=== PATIENT | male | born 1980 | race Caucasian/White ===

== ENCOUNTER 2018-10-05 00:57 | Emergency (ER) | payer OTHER ==
[2018-10-05 01:06] VITALS: TEMP 97.8
--- NOTE | 2018-10-05 01:56 | ED ---
Alcohol HPI - General Chief Complaint: Alcohol Stated Complaint: ETOH Time Seen by Provider: 10/05/18 01:09 Source: police Mode of arrival: ambulatory Limitations: no limitations - History of Present Illness Initial Comments: 38-year-old male patient presents to the emergency department today brought in by [facility] for intoxication. The patient was in a taxicab when he went to sleep. [facility] did try to take him to his home of vomiting he does live at the address listed on his ID. They then contacted the police who attempted to take patient home as well but were unable to find the correct location. Patient does admit to drinking alcohol today. He denies any injuries or physical concerns. He denies any drug use. Patient denies any recent rash, fever, chills, shortness breath, chest pain, abdominal pain, nausea, vomiting, diarrhea, constipation, back pain, numbness, tingling, dizziness, weakness, hematuria, dysuria, urinary urgency, urinary frequency, headache, visual changes, or any other complaints. - Related Data Home Medications Medication Instructions Recorded Confirmed No Known Home Medications 10/05/18 10/05/18 Allergies Allergy/AdvReac Type Severity Reaction Status Date / Time No Known Allergies Allergy Verified 10/05/18 01:06 Review of Systems ROS Statement: Those systems with pertinent positive or pertinent negative responses have been documented in the HPI. ROS Other: All systems not noted in ROS Statement are negative. Past Medical History Past Medical History: No Reported History History of Any Multi-Drug Resistant Organisms: None Reported Past Surgical History: No Surgical Hx Reported Past Psychological History: No Psychological Hx Reported Smoking Status: Current every day smoker Past Alcohol Use History: Daily Past Drug Use History: None Reported General Exam Limitations: no limitations General appearance: alert, in no apparent distress, appears intoxicated, other (Physical well-developed, well-nourished adult male patient in no acute distress. Vital signs upon presentation are temperature 97.8F, pulse 68, respirations 20, blood pressure 110/70, pulse ox 99% on room air.) Eye exam: Present: normal appearance, PERRL, EOMI. Absent: scleral icterus, conjunctival injection, periorbital swelling Respiratory exam: Present: normal lung sounds bilaterally. Absent: respiratory distress, wheezes, rales, rhonchi, stridor Cardiovascular Exam: Present: regular rate, normal rhythm, normal heart sounds. Absent: systolic murmur, diastolic murmur, rubs, gallop, clicks GI/Abdominal exam: Present: soft, normal bowel sounds. Absent: distended, tenderness, guarding, rebound, rigid Neurological exam: Present: alert, CN II-XII intact. Absent: oriented X3 (Oriented x1) Psychiatric exam: Present: normal affect, normal mood Skin exam: Present: warm, dry, intact, normal color. Absent: rash Course Vital Signs 10/05/18 01:01 Temperature 97.8 F Pulse Rate 68 Respiratory 20 Rate Blood Pressure 110/70 O2 Sat by Pulse 99 Oximetry Medical Decision Making - Medical Decision Making 38-year-old male patient presented to the emergency department accompanied by [place] [employer] for alcohol intoxication. Patient had fallen asleep in the back of a taxi cab so police were called. They were unable to locate his home so they brought him in. Patient has no injuries. Denies any physical concerns or symptoms. We were able to contact his who will pick the patient up and take responsible before him. He'll be discharged at this time to follow-up with his primary care physician for recheck as soon as possible. Return parameters were discussed in detail. He verbalizes understand ing and agrees with this plan. Disposition Clinical Impression: Alcohol intoxication Disposition: HOME SELF-CARE Condition: Good Instructions (If sedation given, give patient instructions): Alcohol Intoxication (ED) Additional Instructions: Follow up with your primary care physician as needed. Return to the emergency department immediately for any new, worsening, or concerning symptoms. Is patient prescribed a controlled substance at d/c from ED?: No Referrals: None,Stated [Primary Care Provider] - 1-2 days Time of Disposition: 02:47
[2018-10-05 03:02] VITALS: BP 102/68; PULSE 72; RESP 18
== END 2018-10-05 02:58 | disposition home or self-care (01) ==
LOC: EC 00:57
DX: F10.129 Alcohol abuse with intoxication, unspecified (principal); F17.200 Nicotine dependence, unspecified, uncomplicated
CPT/HCPCS: 99283

== ENCOUNTER 2019-03-10 18:00 | Emergency (ER) | payer OTHER ==
[2019-03-10 18:13] VITALS: RESP 18
[2019-03-10 22:00] LABS: Basophils # (A) 0.1 k/uL (0-0.2); Basophils % (A) 1 %; Eosinophils # (A) 0.2 k/uL (0-0.7); Eosinophils % (A) 2 %; HCT 45.6 % (39.0-53.0); HGB 14.6 gm/dL (13.0-17.5); Lymphocytes # (A) 2.9 k/uL (1.0-4.8); Lymphocytes % (A) 24 %; MCH 30.8 pg (25.0-35.0); MCHC 31.9 g/dL (31.0-37.0); MCV 96.6 fL (80.0-100.0); Mean Platelet Volume 6.1; Monocytes # (A) 0.6 k/uL (0-1.0); Monocytes % (A) 5 %; Neutrophils # (A) 8.3 k/uL (1.3-7.7); Neutrophils % (A) 67 %; Platelet Count 281 k/uL (150-450); RBC 4.72 m/uL (4.30-5.90); RDW 12.5 % (11.5-15.5); WBC 12.3 k/uL (3.8-10.6)
--- NOTE | 2019-03-10 22:02 | XR ---
EXAMINATION TYPE: XR chest 1V portable DATE OF EXAM: 03/10/2019 COMPARISON: None INDICATION: Cartilage rolled onto abdomen trauma TECHNIQUE: Single frontal view of the chest is obtained. FINDINGS: The heart size is normal. The pulmonary vasculature is normal. The lungs are clear. No pneumothorax is evident. No displaced rib fractures are evident. No free air is evident within the abdomen. IMPRESSION: 1. No acute pulmonary process.
--- NOTE | 2019-03-10 22:03 | XR ---
EXAMINATION TYPE: XR pelvis AP view DATE OF EXAM: 03/10/2019 COMPARISON: None HISTORY: Trauma, cartilage rolled onto abdomen TECHNIQUE: AP pelvis FINDINGS: Femoral heads articulate with the acetabulum. No acute fractures are evident. Symphysis pub is and sacroiliac joints appear normal. Bowel gas appears normal. IMPRESSION: 1. No acute osseous abnormality AP pelvis
[2019-03-10 22:10] LABS: ALT 17 U/L (21-72); AST 28 U/L (17-59); African American GFR (CKD) >90 (>60 ml/min/1.73 sqM); Albumin 4.8 g/dL (3.5-5.0); Alkaline Phosphatase 73 U/L (38-126); Anion Gap 10 mmol/L; Blood Urea Nitrogen 9 mg/dL (9-20); Calcium 9.7 mg/dL (8.4-10.2); Carbon Dioxide 28 mmol/L (22-30); Chloride 103 mmol/L (98-107); Glucose 88 mg/dL (74-99); Potassium 3.7 mmol/L (3.5-5.1); Sodium 141 mmol/L (137-145); Total Protein 7.8 g/dL (6.3-8.2)
--- NOTE | 2019-03-10 22:28 | CT ---
EXAMINATION TYPE: CT chest abdomen w con DATE OF EXAM: 03/10/2019 COMPARISON: HISTORY: Pt was working and lumbar cart smashed into chest and abd. Pain to bilateral lower ribs and general abdominal pain CT DLP: 644.6 mGycm. Automated Exposure Control for Dose Reduction was Utilized. CONTRAST: CT scan of the thorax, abdomen and pelvis is performed with IV Contrast, patient injected with 100 mL of Isovue 300. FINDINGS: There is bullous emphysema at the lung apices. There is no evidence of a pulmonary mass. There is no pneumothorax. There is no pleural fluid. Heart size is normal. Thoracic aorta is intact without evidence of aneurysm or dissection. There are no hilar masses. There is no mediastinal adenopathy. Liver spleen pancreas stomach appear normal. Bile ducts are not dilated. Gallbladder appears normal. There is no adrenal mass. Kidneys show satisfactory contrast opacification. There is no hydronephrosi s. There is no retroperitoneal adenopathy. Ureters are not dilated. There is no ascites. There is no evidence of a bowel obstruction. There is no mesenteric edema. Appendix is partly seen and appears no rmal. The thoracic and lumbar vertebra show normal spacing. There is no compression fracture. There is no t horacic paraspinal mass. The posterior elements are intact. The ribs appear intact. Shoulder joints appear intact. Clavicles are intact. The visualized sacroilia c joints appear intact. IMPRESSION: Mild bullous emphysema. No evidence of acute traumatic injury of the chest and abdomen. No fracture.
[2019-03-10] MEDS ORDERED: ACET/COD 300 MG/30 MG STARTER PACK 6 TAB BTL PO STA (22:36)
--- NOTE | 2019-03-10 22:36 | ED ---
Trauma HPI - General Chief Complaint: Trauma Stated Complaint: abdominal injury-[facility] Time Seen by Provider: 03/10/19 21:22 Source: patient Mode of arrival: ambulatory Limitations: no limitations - History of Present Illness Initial Comments: 38-year-old male presenting for abdominal pain lower chest pain after blunt trauma that occurred approximately 2 hours prior to arrival in [place]. Patient states that he was unloading wood at work when the car rolled into his chest. Patient denies it crushing him onto the ground or him falling to the ground denies any head or neck injury. Patient states that it struck him mainly in the lower right ribs and upper abdomen. Patient denies nausea vomiting. Patient sates he does have some mild abdominal pain. Patient states he has pain in the ribs with inspiration. Patient denies shortness of breath. Patient denies any other areas of injury. Patient initially presented to urgent care facility where he sent to the emergency department for further evaluation. Upon arrival patient was signs of acute distress. - Related Data Home Medications Medication Instructions Recorded Confirmed Ranitidine HCl [Zantac] 150 mg PO BID 03/10/19 03/10/19 buPROPion XL [Wellbutrin Xl] 150 mg PO BID 03/10/19 03/10/19 Allergies Allergy/AdvReac Type Severity Reaction Status Date / Time amoxicillin Allergy Anaphylaxis Verified 03/10/19 21:19 cephalexin [From Keflex] Allergy Unknown Verified 03/10/19 21:19 Childhood Review of Systems ROS Statement: Those systems with pertinent positive or pertinent negative responses have been documented in the HPI. ROS Other: All systems not noted in ROS Statement are negative. Past Medical History Past Medical History: No Reported History History of Any Multi-Drug Resistant Organisms: None Reported Past Surgical History: No Surgical Hx Reported Past Psychological History: No Psychological Hx Reported Smoking Status: Current every day smoker Past Alcohol Use History: Daily Past Drug Use History: None Reported General Exam - General Exam Comments Initial Comments: General: The patient is awake and alert, in no distress, and does not appear acutely ill. Eye: =3 mm pupils are equal, round and reactive to light, extra-ocular movements are intact. No nystagmus. There is normal conjunctiva bilaterally. No signs of icterus. Ears, nose, mouth and throat: There are moist mucous membranes and no oral lesions. Neck: The neck is supple, there is no tenderness or JVD. Cardiovascular: There is a regular rate and rhythm. No murmur, rub or gallop is appreciated. Respiratory: Lungs are clear to auscultation, respirations are non-labored, breath sounds are equal. No wheezes, stridor, rales, or rhonchi. No flail chest. Lungs sounds present in all hogan. No bruising of the anterior chest wall. Gastrointestinal: Normal gross examination of the abdomen no ecchymosis. Patient has tenderness to palpation of the upper quadrant, inferior right ribs. Soft, non-distended, remaining abdomen without masses or organomegaly noted. There is no rebound or guarding present. No CVA tenderness. Bowel sounds are unremarkable. Musculoskeletal: Normal ROM, no tenderness. Strength 5/5. Sensation intact. Pulses equal bilaterally 2+. Neurological: A&O x 3. CN II-XII intact grossly, There are no obvious motor or sensory deficits. Coordination appears grossly intact. Speech is normal. Skin: Skin is warm and dry and no rashes or lesions are noted. Psychiatric: Cooperative, appropriate mood & affect, normal judgment. Limitations: no limitations Course Vital Signs 03/10/19 03/10/19 18:10 22:58 Temperature 98.0 F 97.9 F Pulse Rate 68 71 Respiratory 18 18 Rate Blood Pressure 133/82 141/67 O2 Sat by Pulse 100 97 Oximetry Medical Decision Making - Medical Decision Making Well-appearing 38-year-old male presented emergency department for evaluation of injury to the anterior chest upper abdomen. CT of the chest abdomen pelvis negative. Chest x-ray revealed no pneumothorax. EKG normal sinus. Troponin (- ). Patient states the cart did not fall on him, but weighed a ~200lbs. patient has no nausea no vomiting. Remaining exam unremarkable. Given negative imaging studies. Patient's symptoms controlled. She appears well vital signs stable. Patient stated for discharge with outpatient primary care follow-up. Return parameters discussed at length patient verbalizes understanding case discussed with a provider and patient was discharged appearing well. Ventricular rate 60 beats per right, HI interval 162 mg seconds, QRS ration 108 ms, QT/QTC 410 test for temporal seconds. Normal sinus. Normal R-wave progression. There is no ST elevation or depression appreciated. - Lab Data Result diagrams: 03/10/19 21:26 03/10/19 21:26 Lab Results 03/10/19 03/10/1903/10/19 Range/Units 21:06 21:26 21:26 WBC 12.3 H (3.8-10.6) k/uL RBC 4.72 (4.30-5.90) m/uL Hgb 14.6 (13.0-17.5) gm/dL Hct 45.6 (39.0-53.0) % MCV 96.6 (80.0-100.0) fL MCH 30.8 (25.0-35.0) pg MCHC 31.9 (31.0-37.0) g/dL RDW 12.5 (11.5-15.5) % Plt Count 281 (150-450) k/uL Neutrophils % 67 % Lymphocytes % 24 % Monocytes % 5 % Eosinophils % 2 % Basophils % 1 % Neutrophils # 8.3 H (1.3-7.7) k/uL Lymphocytes # 2.9 (1.0-4.8) k/uL Monocytes # 0.6 (0-1.0) k/uL Eosinophils # 0.2 (0-0.7) k/uL Basophils # 0.1 (0-0.2) k/uL Sodium 141 (137-145) mmol/L Potassium 3.7 (3.5-5.1) mmol/L Chloride 103 (98-107) mmol/L Carbon Dioxide 28 (22-30) mmol/L Anion Gap 10 mmol/L BUN 9 (9-20) mg/dL Creatinine 0.97 (0.66-1.25) mg/dL Est GFR (CKD-EPI)AfAm >90 (>60 ml/min/1.73 sqM) Est GFR (CKD-EPI)NonAf >90 (>60 ml/min/1.73 sqM) Glucose 88 (74-99) mg/dL Plasma Lactic Acid Mike (0.7-2.0) mmol/L Calcium 9.7 (8.4-10.2) mg/dL Total Bilirubin 1.0 (0.2-1.3) mg/dL AST 28 (17-59) U/L ALT 17 L (21-72) U/L Alkaline Phosphatase 73 (38-126) U/L Troponin I (0.000-0.034) ng/mL Total Protein 7.8 (6.3-8.2) g/dL Albumin 4.8 (3.5-5.0) g/dL Lipase 110 (23-300) U/L 03/10/19 03/10/19 Range/Units 21:26 21:26 WBC (3.8-10.6) k/uL RBC (4.30-5.90) m/uL Hgb (13.0-17.5) gm/dL Hct (39.0-53.0) % MCV (80.0-100.0) fL MCH (25.0-35.0) pg MCHC (31.0-37.0) g/dL RDW (11.5-15.5) % Plt Count (150-450) k/uL Neutrophils % % Lymphocytes % % Monocytes % % Eosinophils % % Basophils % % Neutrophils # (1.3-7.7) k/uL Lymphocytes # (1.0-4.8) k/uL Monocytes # (0-1.0) k/uL Eosinophils # (0-0.7) k/uL Basophils # (0-0.2) k/uL Sodium (137-145) mmol/L Potassium (3.5-5.1) mmol/L Chloride (98-107) mmol/L Carbon Dioxide (22-30) mmol/L Anion Gap mmol/L BUN (9-20) mg/dL Creatinine (0.66-1.25) mg/dL Est GFR (CKD-EPI)AfAm (>60 ml/min/1.73 sqM) Est GFR (CKD-EPI)NonAf (>60 ml/min/1.73 sqM) Glucose (74-99) mg/dL Plasma Lactic Acid Mike 0.7 (0.7-2.0) mmol/L Calcium (8.4-10.2) mg/dL Total Bilirubin (0.2-1.3) mg/dL AST (17-59) U/L ALT (21-72) U/L Alkaline Phosphatase (38-126) U/L Troponin I <0.012 (0.000-0.034) ng/mL Total Protein (6.3-8.2) g/dL Albumin (3.5-5.0) g/dL Lipase (23-300) U/L Disposition Clinical Impression: Abdominal trauma, Rib pain Disposition: HOME SELF-CARE Condition: Good Instructions (If sedation given, give patient instructions): Rib Contusion (ED) Additional Instructions: Please use medication as discussed. Please follow-up with family doctor in the next 2 days, if have persistent vomiting, nausea, increasing abdominal pain, inability to pass stool or difficulty breathing please present to the ER for re- evaluation. Please return to emergency room if the symptoms increase or worsen or for any other concerns. Is patient prescribed a controlled substance at d/c from ED?: No Referrals: Shiva Godoy MD [Primary Care Provider] - 1-2 days Time of Disposition: 22:35
[2019-03-10 22:59] VITALS: BP 141/67; PULSE 71; TEMP 97.9
== END 2019-03-10 23:15 | disposition home or self-care (01) ==
LOC: EC 18:00
DX: S39.91XA Unspecified injury of abdomen, initial encounter (principal); R07.81 Pleurodynia; F17.200 Nicotine dependence, unspecified, uncomplicated; Z79.899 Other long term (current) drug therapy; Z88.0 Allergy status to penicillin; Z88.1 Allergy status to other antibiotic agents; W22.8XXA Striking against or struck by other objects, initial encounter; Y92.69 Other specified industrial and construction area as the place of occurrence of the external cause; Y99.0 Civilian activity done for income or pay
CPT/HCPCS: 36415; 93005; 80053; 83605; 83690; 84484; 85025; 72170; 71045; 71260; 74160; 99284; Q9967